=== PATIENT | female | born 1955 | race Caucasian/White ===

== ENCOUNTER 2019-08-14 10:04 | Day surgery (SDC) | payer OTHER ==
[~2019-08-14 10:04] MED LIST: Lactated Ringers 1,000 ML IV SCH; Midazolam 1 MG/ML 2 ML SDV ONE; Propofol 200 MG/20 ML SDV ONE; Sodium Chloride 0.9% 10 ML Syringe FLUSH PRN
--- NOTE | 2019-08-14 11:23 | PCM.HPR ---
H & P Addendum review - H & P Addendum Review Date of Original H & P: 07/23/19 Date Reviewed: 08/14/19 Time Reviewed: 11:22 Patient was Examined: No Changes
[2019-08-14] MEDS ORDERED: Midazolam 1 MG/ML 2 ML SDV ONE (11:33)
[2019-08-14] MEDS ORDERED: Propofol 200 MG/20 ML SDV ONE ×2 (11:33)
[2019-08-14] MEDS ORDERED: Lidocaine 2% 5 ML SDV ONE (11:33)
--- NOTE | 2019-08-14 12:10 | PCM.OPNOTE ---
- General Post-Op/Procedure Note Date of Surgery/Procedure: 08/14/19 Operative Procedure(s): EGD with Bx. Colonoscopy with polypectomy Findings: Mild Distal Esophagitis Small rectal polyp Pre Op Diagnosis: GERD. Screening Post-Op Diagnosis: Same Anesthesia Technique: BRITNI Primary Surgeon: Rashawn Gómez Anesthesia Provider: Shanelle Huerta Complications: None Condition: Good
--- NOTE | 2019-08-15 10:38 | OR ---
Date of Procedure: 08/14/2019 PREOPERATIVE DIAGNOSES: 1. Gastroesophageal reflux disease. 2. Colon screening. POSTOPERATIVE DIAGNOSES: 1. Mild distal esophagitis. 2. Small rectal polyp. PROCEDURES: 1. EGD with biopsy. 2. Colonoscopy with polypectomy. ANESTHESIA: IV sedation. PROCEDURE IN DETAIL: The patient was brought to the procedure room where she was placed on her left side and IV sedation administered. Oral bite block was placed and the upper endoscope advanced into the esophagus under direct vision without difficulty. Vocal cords were difficult to visualize, but I did get a brief view and appeared normal. Scope was advanced to the 3rd portion of the duodenum. Duodenum and pylorus were normal. Antrum and body of the stomach were normal other than many hyperplastic polyps throughout the body of the stomach. Fundus was normal and retroflexion was normal. No hiatal hernia was present. Squamocolumnar junction is slightly irregular and there is 1 column of mucosa that could be Suarez's esophagus that was biopsied in the distal esophagus. No ulcers or erosions, strictures, or other abnormalities were noted. Air was removed from the stomach and the scope withdrawn through the remaining esophagus, which appears normal. The patient tolerated this portion of the procedure well. Next, colonoscopy was performed after digital rectal exam was performed, which was normal. Colonoscope was inserted and advanced to the level of the cecum without difficulty. Cecal position was confirmed by identifying the appendiceal lumen and ileocecal valve. Prep was good and surfaces were well visualized. Upon withdrawing the scope, the ascending, transverse, and descending colon were normal in appearance. Sigmoid colon was normal. In the rectum, there was a 4 mm sessile polyp located 10 cm from the anal verge that was removed without biopsy forceps and sent for pathology review. Retroflexion was normal. Air was removed and the scope withdrawn. The patient tolerated the procedure well and returned to recovery in stable condition. The patient will follow up with her primary provider for review of pathology report. If the polyp is adenomatous, she should undergo a repeat colonoscopy again in 3 years. If the polyp is hyperplastic, she could wait 10 years until her next colon screening. BILL MCCORD MD /[id number]
== END 2019-08-14 13:15 | disposition home or self-care (01) ==
LOC: LL.SDS 10:04
PROVIDERS: ATTEND Surgery
DX: K62.1 Rectal polyp (principal); K21.0 Gastro-esophageal reflux disease with esophagitis; K31.7 Polyp of stomach and duodenum; K31.89 Other diseases of stomach and duodenum; R19.4 Change in bowel habit; I10 Essential (primary) hypertension; E78.5 Hyperlipidemia, unspecified; E66.9 Obesity, unspecified; Z88.8 Allergy status to other drugs, medicaments and biological substances; Z86.010 Personal history of colon polyps; Z83.71 Family history of colonic polyps; Z79.899 Other long term (current) drug therapy
CPT/HCPCS: 43239; 45380; J2001; J2250; J2704; J7120

== ENCOUNTER 2024-02-21 10:47 | Day surgery (SDC) | payer MEDICARE, OTHER ==
[~2024-02-21 10:47] MED LIST changes: -Lactated Ringers 1,000 ML IV SCH; -Sodium Chloride 0.9% 10 ML Syringe FLUSH PRN
[2024-02-21] MEDS ORDERED: Sodium Chloride 0.9% 10 ML Syringe FLUSH PRN (11:00)
[2024-02-21] MEDS: Lactated Ringers 1,000 ML IV SCH (11:12)
[2024-02-21] MEDS ORDERED: Lidocaine 2% 5 ML SDV ONE (11:52)
== END 2024-02-21 13:20 | disposition home or self-care (01) ==
LOC: LL.SDS 10:47
PROVIDERS: ATTEND Surgery
DX: K21.00 Gastro-esophageal reflux disease with esophagitis, without bleeding (principal); D12.8 Benign neoplasm of rectum; K22.82 Esophagogastric junction polyp; K29.50 Unspecified chronic gastritis without bleeding; I10 Essential (primary) hypertension; E66.9 Obesity, unspecified; Z86.010 Personal history of colon polyps; Z79.899 Other long term (current) drug therapy; Z88.8 Allergy status to other drugs, medicaments and biological substances; Z98.890 Other specified postprocedural states; Z68.43 Body mass index [BMI] 50.0-59.9, adult
CPT/HCPCS: 00813; J2250; J2704; J3490; J7120